=== PATIENT | male | born 1940 | race Hispanic/Latino ===

== ENCOUNTER 2017-09-02 12:21 | Inpatient (IN) | payer MEDICARE, OTHER ==
[~2017-09-02] VITALS: Ht 167.6 cm; Wt 101.7 kg
[~2017-09-02 12:21] MED LIST: ACET-2247 PO; CLON0.1T PO; CLOP75TA14 PO; CYCL5TAB PO; DOCU-116 PO; ENOX30DI4 SQ; FAMO20TA8 PO; GABA300C PO; GLIM1TAB2 PO; LACT10SO9 PO; LEVO50TA11 PO; MULT-950 PO; PROSTAT SF; SIMV40TA2 PO; VERE240SR PO
[2017-09-02 12:43] LABS: BASOPHILS % (AUTO) 0.9 % (0.0-5.0); EOSINOPHILS % (AUTO) 3.8 % (0.0-8.0); HEMATOCRIT 37.5 % (42-54); LYMPHOCYTES % (AUTO) 18.8 % (21.0-51.0); MEAN CORPUSCULAR HEMOGLOBIN 28.1 pg (27.0-33.0); MEAN CORPUSCULAR HGB CONC 32.8 g/dL (32.0-36.0); MEAN CORPUSCULAR VOLUME 85.5 fL (79-99); MONOCYTES % (AUTO) 7.1 % (3.0-13.0); NEUTROPHILS % (AUTO) 69.4 % (40.0-77.0); PLATELET COUNT (AUTO) 271 K/uL (130-400); RED BLOOD CELL COUNT(AUTO) 4.38 MIL/uL (4.50-6.20); RED CELL DISTRIBUTION WIDTH 17.5 % (11.0-15.5); WHITE BLOOD COUNT (AUTO) 7.6 K/uL (4.8-10.8)
[2017-09-02 12:52] LABS: CREATININE 1.2 mg/dL (0.5-1.5); POTASSIUM 3.8 mmol/L (3.5-5.1)
[2017-09-02 12:54] LABS: INR 0.95 (0.85-1.15); PARTIAL THROMBOPLASTIN TIME 30.3 SEC (26.3-35.5)
[2017-09-02 12:59] LABS: ALBUMIN 3.7 g/dL (3.5-5.0); BILIRUBIN,TOTAL 0.3 mg/dL (0.2-1.0); TOTAL PROTEIN, SERUM 7.5 g/dL (6.0-8.3)
[2017-09-02] MEDS ORDERED: ONDANSETRON HCL 4 MG/2 ML VIAL ONE ×3 (14:20→17:52)
[2017-09-02] MEDS ORDERED: MORPHINE SULFATE 4 MG/1ML SYG ONE (14:21)
[2017-09-02] MEDS ORDERED: VANCOMYCIN 1GM+NS 250ML 250 ML IV ONE (15:51)
[2017-09-02 18:54] VITALS: BP 168/73
[2017-09-02 19:40] VITALS: BP 159/72
[2017-09-02] MEDS ORDERED: OMEP20CA10 PO (20:54)
[2017-09-02] MEDS ORDERED: GABA-531 PO (20:54)
[2017-09-02] MEDS ORDERED: LORTAB PO (20:54)
[2017-09-02] MEDS ORDERED: METF500T6 PO (20:54)
[2017-09-02] MEDS ORDERED: VIT E PO (20:54)
[2017-09-02] MEDS ORDERED: TRAMADOL (20:54)
[2017-09-02] MEDS ORDERED: TRAMADOL PRN (21:00)
[2017-09-02] MEDS ORDERED: CLONIDINE HCL 0.1 MG TABLET PO PRN (21:00)
[2017-09-02] MEDS ORDERED: COMPOUND IV REFRIGERATED 1 EACH IVSOLN MISC PRN (21:30)
[2017-09-02] MEDS ORDERED: GLUCAGON 1MG KIT 1 MG ML IM PRN (21:30)
[2017-09-02] MEDS ORDERED: VANCOMYCIN PROTOCOL PER PHARMACY IV SCH (21:30)
[2017-09-02] MEDS ORDERED: TRAM1TAB PO (21:40)
[2017-09-02 23:36] VITALS: BP 154/85
[2017-09-02] MEDS: ZOSYN 3.375GM+NS 50ML 50 ML IV SCH (23:53)
[2017-09-02] MEDS: GABAPENTIN 300 MG CAPSULE PO SCH (23:54)
[2017-09-02] MEDS: METFORMIN HCL 500 MG TABLET PO SCH (23:54)
[2017-09-03] MEDS: MORPHINE SULFATE 4 MG/1ML SYG IVP PRN (01:35)
[2017-09-03] MEDS ORDERED: IBUP-2077 PO (01:46)
[2017-09-03] MEDS ORDERED: LISI-613 PO (01:46)
[2017-09-03 04:46] VITALS: BP 128/76
[2017-09-03] MEDS: INSULIN R PO SS1 SQ SCH ×4 (05:44→20:11)
[2017-09-03] MEDS: ZOSYN 3.375GM+NS 50ML 50 ML IV SCH ×3 (05:44→20:10)
[2017-09-03 08:27] LABS: CREATININE 1.1 mg/dL (0.5-1.5)
[2017-09-03 08:52] VITALS: BP 141/69
[2017-09-03] MEDS: VANCOMYCIN 1.25 GM in SODIUM CHLORIDE 0.9% 250 ML IV SCH (09:21)
[2017-09-03] MEDS: VITAMIN E 400 UNIT CAPSULE PO SCH (09:21)
[2017-09-03] MEDS: CLOPIDOGREL BISULFATE 75 MG TAB PO SCH (09:22)
[2017-09-03] MEDS: GABAPENTIN 300 MG CAPSULE PO SCH ×3 (09:22→20:11)
[2017-09-03] MEDS: LISINOPRIL 20 MG TABLET PO SCH (09:22)
[2017-09-03] MEDS: PANTOPRAZOLE SODIUM 40 MG TABLET.DR PO SCH (09:22)
[2017-09-03] MEDS: METFORMIN HCL 500 MG TABLET PO SCH ×2 (09:22→16:35)
[2017-09-03] MEDS: HYDROCODONE/ACETAMINOPHEN 10/325 MG TAB PO PRN ×2 (09:23→20:11)
[2017-09-03 11:28] VITALS: BP 150/67
[2017-09-03 16:13] VITALS: BP 156/90
[2017-09-03 20:08] VITALS: BP 142/83
[2017-09-03 23:03] VITALS: BP 132/62
[2017-09-04] MEDS: MORPHINE SULFATE 4 MG/1ML SYG IVP PRN (01:01)
[2017-09-04 03:54] VITALS: BP 130/71
[2017-09-04 05:55] LABS: BASOPHILS % (AUTO) 1.1 % (0.0-5.0); EOSINOPHILS % (AUTO) 5.4 % (0.0-8.0); HEMATOCRIT 32.7 % (42-54); LYMPHOCYTES % (AUTO) 29.7 % (21.0-51.0); MEAN CORPUSCULAR HEMOGLOBIN 28.2 pg (27.0-33.0); MEAN CORPUSCULAR HGB CONC 32.5 g/dL (32.0-36.0); MEAN CORPUSCULAR VOLUME 86.8 fL (79-99); MONOCYTES % (AUTO) 8.3 % (3.0-13.0); NEUTROPHILS % (AUTO) 55.5 % (40.0-77.0); PLATELET COUNT (AUTO) 239 K/uL (130-400); RED BLOOD CELL COUNT(AUTO) 3.77 MIL/uL (4.50-6.20); RED CELL DISTRIBUTION WIDTH 17.3 % (11.0-15.5); WHITE BLOOD COUNT (AUTO) 6.7 K/uL (4.8-10.8)
[2017-09-04] MEDS: INSULIN R PO SS1 SQ SCH ×4 (05:57→20:20)
[2017-09-04] MEDS: ZOSYN 3.375GM+NS 50ML 50 ML IV SCH ×3 (05:57→20:26)
[2017-09-04 06:03] LABS: POTASSIUM 3.8 mmol/L (3.5-5.1)
[2017-09-04 07:54] VITALS: BP 141/62
[2017-09-04] MEDS: PANTOPRAZOLE SODIUM 40 MG TABLET.DR PO SCH (09:42)
[2017-09-04] MEDS: CLOPIDOGREL BISULFATE 75 MG TAB PO SCH (09:42)
[2017-09-04] MEDS: VITAMIN E 400 UNIT CAPSULE PO SCH (09:42)
[2017-09-04] MEDS: METFORMIN HCL 500 MG TABLET PO SCH ×2 (09:42→16:44)
[2017-09-04] MEDS: LISINOPRIL 20 MG TABLET PO SCH (09:43)
[2017-09-04] MEDS: VANCOMYCIN 1.25 GM in SODIUM CHLORIDE 0.9% 250 ML IV SCH (09:52)
[2017-09-04] MEDS: ENOXAPARIN SODIUM 40 MG/0.4 ML SYRINGE SQ SCH (09:53)
[2017-09-04 11:16] VITALS: BP 143/70
[2017-09-04] MEDS: GABAPENTIN 300 MG CAPSULE PO SCH ×2 (13:48→20:26)
[2017-09-04] MEDS: HYDROCODONE/ACETAMINOPHEN 10/325 MG TAB PO PRN ×2 (13:54→22:05)
[2017-09-04 16:20] VITALS: BP 146/72
[2017-09-04 20:00] VITALS: BP 148/72
[2017-09-05] VITALS: BP 134/62
[2017-09-05] MEDS: MORPHINE SULFATE 4 MG/1ML SYG IVP PRN ×2 (01:41→23:37)
[2017-09-05] MEDS: ZOSYN 3.375GM+NS 50ML 50 ML IV SCH ×3 (03:59→20:41)
[2017-09-05 04:00] VITALS: BP 152/70
[2017-09-05 05:12] LABS: HEMATOCRIT 30.8 % (42-54); MEAN CORPUSCULAR HEMOGLOBIN 29.8 pg (27.0-33.0); MEAN CORPUSCULAR HGB CONC 34.4 g/dL (32.0-36.0); MEAN CORPUSCULAR VOLUME 86.6 fL (79-99); NUCLEATED RED BLOOD CELLS 0.1 % (0.0-0.19); PLATELET COUNT (AUTO) 236 K/uL (130-400); RED BLOOD CELL COUNT(AUTO) 3.56 MIL/uL (4.50-6.20); RED CELL DISTRIBUTION WIDTH 17.5 % (11.0-15.5); WHITE BLOOD COUNT (AUTO) 7.4 K/uL (4.8-10.8)
[2017-09-05] MEDS: INSULIN R PO SS1 SQ SCH ×4 (06:07→20:25)
[2017-09-05 08:00] VITALS: BP 155/63
[2017-09-05] MEDS: CLOPIDOGREL BISULFATE 75 MG TAB PO SCH (08:07)
[2017-09-05] MEDS: PANTOPRAZOLE SODIUM 40 MG TABLET.DR PO SCH (08:07)
[2017-09-05] MEDS: METFORMIN HCL 500 MG TABLET PO SCH ×2 (08:07→17:18)
[2017-09-05] MEDS: LISINOPRIL 20 MG TABLET PO SCH (08:07)
[2017-09-05] MEDS: GABAPENTIN 300 MG CAPSULE PO SCH ×3 (08:07→20:41)
[2017-09-05] MEDS: VITAMIN E 400 UNIT CAPSULE PO SCH (08:26)
[2017-09-05] MEDS: VANCOMYCIN 1.25 GM in SODIUM CHLORIDE 0.9% 250 ML IV SCH (08:27)
[2017-09-05] MEDS: ENOXAPARIN SODIUM 40 MG/0.4 ML SYRINGE SQ SCH (08:29)
[2017-09-05 11:22] VITALS: BP 138/88
[2017-09-05 16:00] VITALS: BP 148/90
[2017-09-05] MEDS: SODIUM CHLORIDE 0.9% 1000ML 1,000 ML IV SCH (16:05)
[2017-09-05] MEDS ORDERED: DiphenhydrAMINE HCL 50 MG/ML VIAL IVP PRN (16:15)
[2017-09-05 20:00] VITALS: BP 157/63
[2017-09-06] VITALS (7 sets, daily range): BP systolic 111–158; BP diastolic 46–75
[2017-09-06] MEDS: SODIUM CHLORIDE 0.9% 1000ML 1,000 ML IV SCH ×3 (02:05→21:29)
[2017-09-06 03:54] LABS: HEMATOCRIT 32.3 % (42-54); MEAN CORPUSCULAR HEMOGLOBIN 28.4 pg (27.0-33.0); NUCLEATED RED BLOOD CELLS 0.1 % (0.0-0.19); PLATELET COUNT (AUTO) 221 K/uL (130-400); RED BLOOD CELL COUNT(AUTO) 3.75 MIL/uL (4.50-6.20); RED CELL DISTRIBUTION WIDTH 17.4 % (11.0-15.5); WHITE BLOOD COUNT (AUTO) 7.6 K/uL (4.8-10.8)
[2017-09-06 04:01] LABS: CREATININE 1.1 mg/dL (0.5-1.5); POTASSIUM 4.3 mmol/L (3.5-5.1)
[2017-09-06] MEDS: ZOSYN 3.375GM+NS 50ML 50 ML IV SCH ×3 (04:44→20:18)
[2017-09-06] MEDS: INSULIN R PO SS1 SQ SCH ×4 (07:30→20:31)
[2017-09-06] MEDS: CLOPIDOGREL BISULFATE 75 MG TAB PO SCH (09:28)
[2017-09-06] MEDS: LISINOPRIL 20 MG TABLET PO SCH (09:29)
[2017-09-06] MEDS: PANTOPRAZOLE SODIUM 40 MG TABLET.DR PO SCH (09:29)
[2017-09-06] MEDS: VITAMIN E 400 UNIT CAPSULE PO SCH (09:29)
[2017-09-06] MEDS: GLIMEPIRIDE 2 MG TABLET PO SCH (09:29)
[2017-09-06] MEDS: GABAPENTIN 300 MG CAPSULE PO SCH ×3 (09:30→20:18)
[2017-09-06] MEDS: VANCOMYCIN 1.25 GM in SODIUM CHLORIDE 0.9% 250 ML IV SCH ×2 (09:31→22:02)
[2017-09-06] MEDS: ENOXAPARIN SODIUM 40 MG/0.4 ML SYRINGE SQ SCH (09:33)
[2017-09-06] MEDS: MORPHINE SULFATE 4 MG/1ML SYG IVP PRN (09:52)
[2017-09-06] MEDS: HYDROCODONE/ACETAMINOPHEN 10/325 MG TAB PO PRN (15:57)
[2017-09-07] VITALS (12 sets, daily range): BP systolic 103–200; BP diastolic 53–93
[2017-09-07 04:27] LABS: HEMATOCRIT 30.6 % (42-54); MEAN CORPUSCULAR HEMOGLOBIN 30.2 pg (27.0-33.0); MEAN CORPUSCULAR HGB CONC 35.2 g/dL (32.0-36.0); MEAN CORPUSCULAR VOLUME 85.7 fL (79-99); PLATELET COUNT (AUTO) 245 K/uL (130-400); RED BLOOD CELL COUNT(AUTO) 3.57 MIL/uL (4.50-6.20); RED CELL DISTRIBUTION WIDTH 17.9 % (11.0-15.5); WHITE BLOOD COUNT (AUTO) 6.7 K/uL (4.8-10.8)
[2017-09-07 04:38] LABS: INR 0.98 (0.85-1.15); PROTHROMBIN TIME 10.3 SEC (9.6-11.6)
[2017-09-07 04:43] LABS: CREATININE 0.9 mg/dL (0.5-1.5); POTASSIUM 3.6 mmol/L (3.5-5.1)
[2017-09-07] MEDS: MORPHINE SULFATE 4 MG/1ML SYG IVP PRN ×3 (05:35→18:28)
[2017-09-07] MEDS: ZOSYN 3.375GM+NS 50ML 50 ML IV SCH ×3 (05:35→20:14)
[2017-09-07] MEDS: LEVOTHYROXINE 50 MCG TABLET PO SCH (05:36)
[2017-09-07] MEDS: INSULIN R PO SS1 SQ SCH ×4 (05:36→20:19)
[2017-09-07] MEDS: GLIMEPIRIDE 2 MG TABLET PO SCH (08:00)
[2017-09-07] MEDS: CLOPIDOGREL BISULFATE 75 MG TAB PO SCH (08:43)
[2017-09-07] MEDS: PANTOPRAZOLE SODIUM 40 MG TABLET.DR PO SCH ×2 (08:43→18:32)
[2017-09-07] MEDS: LISINOPRIL 20 MG TABLET PO SCH (08:43)
[2017-09-07] MEDS: GABAPENTIN 300 MG CAPSULE PO SCH ×3 (08:43→20:14)
[2017-09-07] MEDS: VITAMIN E 400 UNIT CAPSULE PO SCH (08:44)
[2017-09-07] MEDS: VANCOMYCIN 1.25 GM in SODIUM CHLORIDE 0.9% 250 ML IV SCH ×2 (08:52→20:14)
[2017-09-07] MEDS: SODIUM CHLORIDE 0.9% 1000ML 1,000 ML IV SCH (08:53)
[2017-09-07] MEDS ORDERED: LIDOCAINE HCL 2% 20ML ONE (14:14)
[2017-09-07] MEDS ORDERED: ISOVUE-300 100 ML VIAL IV ONE ×2 (14:14→15:37)
[2017-09-07] MEDS ORDERED: NITROGLYCERIN 5 MG/ML 10 ML VIAL IV ONE (14:14)
[2017-09-07] MEDS ORDERED: HEPARIN SODIUM 5000UNIT/ML 1ML VIAL ONE (14:21)
[2017-09-07] MEDS ORDERED: MIDAZOLAM HCL 1 MG/ML 2ML VIAL ONE (14:40)
[2017-09-07] MEDS ORDERED: FENTANYL CITRATE PF 50 MCG/1 ML 2ML VIAL ONE (14:40)
[2017-09-07] MEDS ORDERED: LABETALOL HCL 5 MG/ML 20ML VIAL IV ONE (15:48)
[2017-09-07] MEDS ORDERED: TICAGRELOR 90 MG TABLET ONE (15:53)
[2017-09-07] MEDS ORDERED: ASPIRIN 325MG EC TAB 325 MG TABLET.DR PO ONE (15:53)
[2017-09-07] MEDS ORDERED: SODIUM CHLORIDE 0.9% 1000ML 1,000 ML IV SCH (16:05)
[2017-09-07] MEDS ORDERED: TICAGRELOR 90 MG TABLET PO SCH (23:55)
[2017-09-08] MEDS ORDERED: MAG HYDROX/AL HYDROX/SIMETH ES 30 ML SUSP UDCUP ONE (00:08)
[2017-09-08] MEDS: MORPHINE SULFATE 4 MG/1ML SYG IVP PRN ×2 (00:12→16:30)
[2017-09-08 04:20] VITALS: BP 166/66
[2017-09-08] MEDS: ZOSYN 3.375GM+NS 50ML 50 ML IV SCH ×3 (04:21→20:49)
[2017-09-08 04:31] LABS: HEMATOCRIT 32.4 % (42-54); MEAN CORPUSCULAR HEMOGLOBIN 28.5 pg (27.0-33.0); MEAN CORPUSCULAR HGB CONC 33.1 g/dL (32.0-36.0); MEAN CORPUSCULAR VOLUME 86.1 fL (79-99); PLATELET COUNT (AUTO) 246 K/uL (130-400); RED BLOOD CELL COUNT(AUTO) 3.77 MIL/uL (4.50-6.20); RED CELL DISTRIBUTION WIDTH 17.3 % (11.0-15.5); WHITE BLOOD COUNT (AUTO) 6.7 K/uL (4.8-10.8)
[2017-09-08 04:43] LABS: POTASSIUM 3.8 mmol/L (3.5-5.1)
[2017-09-08] MEDS: INSULIN R PO SS1 SQ SCH ×4 (07:30→20:50)
[2017-09-08 08:00] VITALS: BP 149/79
[2017-09-08] MEDS: LEVOTHYROXINE 50 MCG TABLET PO SCH (08:20)
[2017-09-08] MEDS: CLOPIDOGREL BISULFATE 75 MG TAB PO SCH ×2 (08:21→08:22)
[2017-09-08] MEDS: VITAMIN E 400 UNIT CAPSULE PO SCH (08:21)
[2017-09-08] MEDS: LISINOPRIL 20 MG TABLET PO SCH (08:21)
[2017-09-08] MEDS: GABAPENTIN 300 MG CAPSULE PO SCH ×3 (08:21→20:49)
[2017-09-08] MEDS: ASPIRIN 81MG TAB.CHEW PO SCH (08:21)
[2017-09-08] MEDS: GLIMEPIRIDE 2 MG TABLET PO SCH (08:22)
[2017-09-08] MEDS: PANTOPRAZOLE SODIUM 40 MG TABLET.DR PO SCH (08:22)
[2017-09-08] MEDS: VANCOMYCIN 1.25 GM in SODIUM CHLORIDE 0.9% 250 ML IV SCH ×2 (08:29→20:49)
[2017-09-08] MEDS: AMLODIPINE BESYLATE 5 MG TAB PO SCH (10:07)
[2017-09-08] MEDS: IBUPROFEN 800 MG TAB PO PRN (10:07)
[2017-09-08] MEDS: MAG HYDROX/AL HYDROX/SIMETH ES 30 ML SUSP UDCUP PO PRN (13:12)
[2017-09-08 16:00] VITALS: BP 139/63
[2017-09-08 19:45] VITALS: BP 133/64
[2017-09-08] MEDS: HYDROCODONE/ACETAMINOPHEN 10/325 MG TAB PO PRN (23:11)
[2017-09-08 23:40] VITALS: BP 142/74
[2017-09-09] MEDS: MORPHINE SULFATE 4 MG/1ML SYG IVP PRN ×3 (01:24→15:23)
[2017-09-09 03:49] VITALS: BP 135/80
[2017-09-09] MEDS: ZOSYN 3.375GM+NS 50ML 50 ML IV SCH ×3 (06:39→22:03)
[2017-09-09] MEDS: INSULIN R PO SS1 SQ SCH ×4 (06:54→21:00)
[2017-09-09 08:00] VITALS: BP 142/63
[2017-09-09] MEDS: VANCOMYCIN 1GM+NS 250ML IV SCH ×2 (11:23→21:13)
[2017-09-09] MEDS: VITAMIN E 400 UNIT CAPSULE PO SCH (11:24)
[2017-09-09] MEDS: PANTOPRAZOLE SODIUM 40 MG TABLET.DR PO SCH (11:25)
[2017-09-09] MEDS: GABAPENTIN 300 MG CAPSULE PO SCH ×3 (11:25→21:12)
[2017-09-09] MEDS: GLIMEPIRIDE 2 MG TABLET PO SCH (11:26)
[2017-09-09] MEDS: ASPIRIN 81MG TAB.CHEW PO SCH (11:26)
[2017-09-09] MEDS: LISINOPRIL 20 MG TABLET PO SCH (11:26)
[2017-09-09] MEDS: CLOPIDOGREL BISULFATE 75 MG TAB PO SCH (11:26)
[2017-09-09] MEDS: AMLODIPINE BESYLATE 5 MG TAB PO SCH (11:26)
[2017-09-09] MEDS: LEVOTHYROXINE 50 MCG TABLET PO SCH (11:27)
[2017-09-09 12:00] VITALS: BP 134/69
[2017-09-09 16:00] VITALS: BP 144/68
[2017-09-09] MEDS ORDERED: CEFUROXIME SODIUM 1.5 GM VIAL IVP SCH (17:15)
[2017-09-09 17:21] LABS: PARTIAL THROMBOPLASTIN TIME 32.2 SEC (26.3-35.5)
[2017-09-09] MEDS ORDERED: METFORMIN HCL 500 MG TABLET PO SCH (17:26)
[2017-09-09 17:31] LABS: INR 0.97 (0.85-1.15); PROTHROMBIN TIME 10.2 SEC (9.6-11.6)
[2017-09-09] MEDS: METFORMIN HCL 500 MG TABLET PO SCH (17:42)
[2017-09-09] MEDS: HYDROCODONE/ACETAMINOPHEN 10/325 MG TAB PO PRN (17:46)
[2017-09-09 19:00] VITALS: BP 129/49
[2017-09-10] VITALS (16 sets, daily range): BP systolic 102–164; BP diastolic 38–98
[2017-09-10 04:21] LABS: HEMATOCRIT 31.4 % (42-54); MEAN CORPUSCULAR HEMOGLOBIN 28.2 pg (27.0-33.0); MEAN CORPUSCULAR HGB CONC 32.5 g/dL (32.0-36.0); MEAN CORPUSCULAR VOLUME 86.9 fL (79-99); NUCLEATED RED BLOOD CELLS 0.1 % (0.0-0.19); PLATELET COUNT (AUTO) 218 K/uL (130-400); RED BLOOD CELL COUNT(AUTO) 3.61 MIL/uL (4.50-6.20); RED CELL DISTRIBUTION WIDTH 17.5 % (11.0-15.5); WHITE BLOOD COUNT (AUTO) 7.7 K/uL (4.8-10.8)
[2017-09-10 04:43] LABS: CREATININE 0.9 mg/dL (0.5-1.5); POTASSIUM 3.6 mmol/L (3.5-5.1)
[2017-09-10] MEDS: ZOSYN 3.375GM+NS 50ML 50 ML IV SCH ×3 (05:24→20:14)
[2017-09-10] MEDS: INSULIN R PO SS1 SQ SCH ×4 (06:48→20:26)
[2017-09-10] MEDS ORDERED: CEFUROXIME 1.5GM+NS 100ML 100 ML IV SCH ×2 (07:00→20:45)
[2017-09-10] MEDS: LEVOTHYROXINE 50 MCG TABLET PO SCH (07:30)
[2017-09-10] MEDS ORDERED: HEPARIN SODIUM 1000UNIT/ML 10ML VIAL ONE (07:39)
[2017-09-10] MEDS ORDERED: BACITRACIN 50,000 UNIT VIAL ONE (07:40)
[2017-09-10] MEDS ORDERED: THROMBIN-JMI 5000 UNIT/VIAL TP ONE (07:41)
[2017-09-10] MEDS ORDERED: MIDAZOLAM HCL 1 MG/ML 2ML VIAL ONE (07:48)
[2017-09-10] MEDS ORDERED: FENTANYL CITRATE PF 50 MCG/1 ML 2ML VIAL ONE ×2 (07:48→13:17)
[2017-09-10] MEDS ORDERED: PROPOFOL 10 MG/ML 20ML VIAL IV ONE (07:48)
[2017-09-10] MEDS: GLIMEPIRIDE 2 MG TABLET PO SCH (08:00)
[2017-09-10] MEDS: METFORMIN HCL 500 MG TABLET PO SCH ×2 (08:00→16:37)
[2017-09-10] MEDS: VITAMIN E 400 UNIT CAPSULE PO SCH (09:00)
[2017-09-10] MEDS: PANTOPRAZOLE SODIUM 40 MG TABLET.DR PO SCH (09:00)
[2017-09-10] MEDS: ASPIRIN 81MG TAB.CHEW PO SCH (09:00)
[2017-09-10] MEDS: GABAPENTIN 300 MG CAPSULE PO SCH ×3 (09:00→20:14)
[2017-09-10] MEDS: CLOPIDOGREL BISULFATE 75 MG TAB PO SCH (09:00)
[2017-09-10] MEDS ORDERED: BACITRACIN 28.4 GM OINT TP ONE (10:44)
[2017-09-10] MEDS ORDERED: ROCURONIUM BROMIDE 10MG/1ML 5ML VL ONE ×2 (11:46→13:35)
[2017-09-10] MEDS ORDERED: OCTYL 2-CYANOACRYLATE 1 EACH TP ONE (12:35)
[2017-09-10] MEDS ORDERED: CEFUROXIME SODIUM 1.5 GM VIAL ONE (12:42)
[2017-09-10] MEDS ORDERED: MORPHINE SULFATE 2 MG/ML 1ML SYG IM PRN (12:45)
[2017-09-10] MEDS ORDERED: EPHEDRINE SULFATE 50 MG/ML AMPULE ONE (12:54)
[2017-09-10] MEDS ORDERED: GLYCOPYRROLATE 0.2 MG/ML 5 ML VIAL ONE (13:35)
[2017-09-10] MEDS ORDERED: ONDANSETRON HCL 4 MG/2 ML VIAL ONE (13:35)
[2017-09-10] MEDS ORDERED: NEOSTIGMINE 5MG/5ML SYR IV ONE (13:35)
[2017-09-10] MEDS ORDERED: LIDOCAINE PF 2% 5ML ABBOJECT ONE (13:35)
[2017-09-10] MEDS ORDERED: MORPHINE SULFATE 4 MG/1ML SYG ONE (14:18)
[2017-09-10] MEDS ORDERED: FUROSEMIDE 10 MG/ML 2ML VIAL ONE (14:36)
[2017-09-10] MEDS ORDERED: FUROSEMIDE 10 MG/ML 2ML VIAL IV SCH (14:45)
[2017-09-10] MEDS ORDERED: IPRATROPIUM/ALBUTEROL SULFATE 3 ML SOLUTION IH SCH (14:45)
[2017-09-10] MEDS ORDERED: VANCOMYCIN PROTOCOL PER PHARMACY IV SCH (15:00)
[2017-09-10] MEDS: FUROSEMIDE 10 MG/ML 2ML VIAL IV SCH ×2 (15:00→22:13)
[2017-09-10 15:58] LABS: HEMATOCRIT 32.2 % (42-54); MEAN CORPUSCULAR HEMOGLOBIN 27.8 pg (27.0-33.0); MEAN CORPUSCULAR HGB CONC 31.5 g/dL (32.0-36.0); MEAN CORPUSCULAR VOLUME 88.3 fL (79-99); PLATELET COUNT (AUTO) 231 K/uL (130-400); RED BLOOD CELL COUNT(AUTO) 3.65 MIL/uL (4.50-6.20); RED CELL DISTRIBUTION WIDTH 18.4 % (11.0-15.5); WHITE BLOOD COUNT (AUTO) 13.3 K/uL (4.8-10.8)
[2017-09-10] MEDS ORDERED: VANCOMYCIN 1.5 GM in SODIUM CHLORIDE 0.9% 250 ML IV SCH (16:00)
[2017-09-10 16:02] LABS: ABG BASE EXCESS -7.7 mmol/L (-2.0-3.0); ABG HCO3 16.5 mmol/L (21.0-28.0); ABG OXYGEN SATURATION 99.1 % (95.0-99.0); ABG PCO2 30 mmHg (35-48)
[2017-09-10 16:35] LABS: CREATININE 1.1 mg/dL (0.5-1.5); POTASSIUM 3.6 mmol/L (3.5-5.1)
[2017-09-10 16:38] LABS: MAGNESIUM 1.9 mg/dL (1.80-2.40)
[2017-09-10] MEDS: LEVOFLOXACIN 750 MG/D5W 150 ML 150 ML IV SCH (16:45)
[2017-09-10] MEDS ORDERED: LIDOCAINE HCL-MPF 1% 2ML VIAL IVP PRN (17:30)
[2017-09-10] MEDS ORDERED: POTASSIUM CHLORIDE 10% ELIXIR 20 MEQ/15 ML UDCUP PO PRN (17:30)
[2017-09-10] MEDS: IPRATROPIUM/ALBUTEROL SULFATE 3 ML SOLUTION IH SCH (18:00)
[2017-09-10] MEDS: MAGNESIUM 2GM PREMIX 50ML 50 ML IV PRN (18:14)
[2017-09-10] MEDS: POTASSIUM CHLORIDE 20MEQ/100ML 100 ML IV PRN (18:14)
[2017-09-10] MEDS: INSULIN HUMULIN R 100 UNIT/ML 3ML SQ SCH ×2 (18:25→23:54)
[2017-09-10] MEDS: HYDROCODONE/ACETAMINOPHEN 10/325 MG TAB PO PRN ×2 (20:14)
[2017-09-10] MEDS: FLUCONAZOLE 100 MG TAB PO SCH (20:17)
[2017-09-10] MEDS ORDERED: CEFUROXIME SODIUM 1.5 GM VIAL IVP SCH (21:00)
[2017-09-11] VITALS (18 sets, daily range): BP systolic 101–156; BP diastolic 44–85
[2017-09-11] MEDS: TRAMADOL HCL 50 MG TABLET PO PRN ×2 (00:08→18:40)
[2017-09-11] MEDS: IPRATROPIUM/ALBUTEROL SULFATE 3 ML SOLUTION IH SCH ×5 (00:22→23:31)
[2017-09-11] MEDS: IBUPROFEN 800 MG TAB PO PRN (01:58)
[2017-09-11] MEDS ORDERED: MORPHINE SULFATE 4 MG/1ML SYG ONE (02:51)
[2017-09-11 04:29] LABS: BASOPHILS % (AUTO) 0.2 % (0.0-5.0); EOSINOPHILS % (AUTO) 0.1 % (0.0-8.0); HEMATOCRIT 26.8 % (42-54); LYMPHOCYTES % (AUTO) 8.7 % (21.0-51.0); MEAN CORPUSCULAR HEMOGLOBIN 29.2 pg (27.0-33.0); MEAN CORPUSCULAR HGB CONC 33.8 g/dL (32.0-36.0); MEAN CORPUSCULAR VOLUME 86.4 fL (79-99); MONOCYTES % (AUTO) 10.6 % (3.0-13.0); NEUTROPHILS % (AUTO) 80.4 % (40.0-77.0); PLATELET COUNT (AUTO) 221 K/uL (130-400); RED CELL DISTRIBUTION WIDTH 17.5 % (11.0-15.5); WHITE BLOOD COUNT (AUTO) 9.6 K/uL (4.8-10.8)
[2017-09-11] MEDS: ZOSYN 3.375GM+NS 50ML 50 ML IV SCH ×3 (04:39→20:23)
[2017-09-11 04:50] LABS: ALBUMIN 2.7 g/dL (3.5-5.0); BILIRUBIN,TOTAL 0.4 mg/dL (0.2-1.0); CREATININE 1.1 mg/dL (0.5-1.5); MAGNESIUM 2.3 mg/dL (1.80-2.40); PHOSPHORUS 3.2 mg/dL (2.5-4.9); POTASSIUM 3.6 mmol/L (3.5-5.1); TOTAL PROTEIN, SERUM 6.3 g/dL (6.0-8.3)
[2017-09-11] MEDS: INSULIN HUMULIN R 100 UNIT/ML 3ML SQ SCH ×4 (05:48→23:10)
[2017-09-11] MEDS: FUROSEMIDE 10 MG/ML 2ML VIAL IV SCH ×3 (06:00→22:22)
[2017-09-11] MEDS: LEVOTHYROXINE 50 MCG TABLET PO SCH (06:01)
[2017-09-11] MEDS: INSULIN R PO SS1 SQ SCH ×4 (06:02→20:50)
[2017-09-11] MEDS: HYDROCODONE/ACETAMINOPHEN 10/325 MG TAB PO PRN ×3 (06:07→22:35)
[2017-09-11] MEDS: CLOPIDOGREL BISULFATE 75 MG TAB PO SCH (08:45)
[2017-09-11] MEDS: AMLODIPINE BESYLATE 5 MG TAB PO SCH ×2 (08:45→09:00)
[2017-09-11] MEDS: FLUCONAZOLE 100 MG TAB PO SCH (08:45)
[2017-09-11] MEDS: LISINOPRIL 20 MG TABLET PO SCH (08:46)
[2017-09-11] MEDS: GLIMEPIRIDE 2 MG TABLET PO SCH (08:46)
[2017-09-11] MEDS: PANTOPRAZOLE SODIUM 40 MG TABLET.DR PO SCH (08:46)
[2017-09-11] MEDS: VITAMIN E 400 UNIT CAPSULE PO SCH (08:46)
[2017-09-11] MEDS: POTASSIUM CHLORIDE 20 MEQ ERTAB PO PRN ×2 (08:47→20:39)
[2017-09-11] MEDS: VANCOMYCIN 1GM+NS 250ML 250 ML IV SCH ×2 (08:47→20:22)
[2017-09-11] MEDS ORDERED: METFORMIN HCL 500 MG TABLET ONE (08:48)
[2017-09-11] MEDS: METFORMIN HCL 500 MG TABLET PO SCH ×2 (08:49→16:44)
[2017-09-11] MEDS: GABAPENTIN 300 MG CAPSULE PO SCH ×3 (09:00→20:23)
[2017-09-11] MEDS: ASPIRIN 81MG TAB.CHEW PO SCH (09:00)
[2017-09-11] MEDS: MAG HYDROX/AL HYDROX/SIMETH ES 30 ML SUSP UDCUP PO PRN (09:53)
[2017-09-11] MEDS ORDERED: CALCIUM GLUCONATE 1 GM in SODIUM CHLORIDE 0.9% 50 ML IV SCH (14:30)
[2017-09-11] MEDS: LEVOFLOXACIN 750 MG/D5W 150 ML 150 ML IV SCH (14:43)
[2017-09-12 03:13] VITALS: BP 112/66
[2017-09-12 05:00] LABS: HEMATOCRIT 27.1 % (42-54); MEAN CORPUSCULAR HEMOGLOBIN 28.1 pg (27.0-33.0); MEAN CORPUSCULAR HGB CONC 32.8 g/dL (32.0-36.0); MEAN CORPUSCULAR VOLUME 85.6 fL (79-99); PLATELET COUNT (AUTO) 202 K/uL (130-400); RED BLOOD CELL COUNT(AUTO) 3.17 MIL/uL (4.50-6.20); RED CELL DISTRIBUTION WIDTH 17.6 % (11.0-15.5); WHITE BLOOD COUNT (AUTO) 9.2 K/uL (4.8-10.8)
[2017-09-12 05:09] LABS: CREATININE 1.1 mg/dL (0.5-1.5); MAGNESIUM 2.1 mg/dL (1.80-2.40); POTASSIUM 3.7 mmol/L (3.5-5.1)
[2017-09-12] MEDS: ZOSYN 3.375GM+NS 50ML 50 ML IV SCH ×3 (05:30→21:07)
[2017-09-12] MEDS: TRAMADOL HCL 50 MG TABLET PO PRN (05:44)
[2017-09-12] MEDS: IPRATROPIUM/ALBUTEROL SULFATE 3 ML SOLUTION IH SCH ×4 (05:46→23:43)
[2017-09-12] MEDS: INSULIN HUMULIN R 100 UNIT/ML 3ML SQ SCH ×3 (06:00→18:00)
[2017-09-12] MEDS: LEVOTHYROXINE 50 MCG TABLET PO SCH (06:32)
[2017-09-12] MEDS: FUROSEMIDE 10 MG/ML 2ML VIAL IV SCH ×2 (06:32→15:12)
[2017-09-12] MEDS: INSULIN R PO SS1 SQ SCH ×4 (06:36→21:00)
[2017-09-12 07:49] VITALS: BP 137/60
[2017-09-12] MEDS: GLIMEPIRIDE 2 MG TABLET PO SCH (08:00)
[2017-09-12] MEDS: METFORMIN HCL 500 MG TABLET PO SCH ×2 (08:00→16:56)
[2017-09-12] MEDS: CLOPIDOGREL BISULFATE 75 MG TAB PO SCH (10:47)
[2017-09-12] MEDS: FLUCONAZOLE 100 MG TAB PO SCH (10:47)
[2017-09-12] MEDS: PANTOPRAZOLE SODIUM 40 MG TABLET.DR PO SCH (10:47)
[2017-09-12] MEDS: ENOXAPARIN SODIUM 40 MG/0.4 ML SYRINGE SQ SCH (10:47)
[2017-09-12] MEDS: ASPIRIN 81MG TAB.CHEW PO SCH (10:47)
[2017-09-12] MEDS: AMLODIPINE BESYLATE 5 MG TAB PO SCH (10:48)
[2017-09-12] MEDS: GABAPENTIN 300 MG CAPSULE PO SCH ×3 (10:48→21:07)
[2017-09-12] MEDS: VITAMIN E 400 UNIT CAPSULE PO SCH (10:49)
[2017-09-12] MEDS: LISINOPRIL 20 MG TABLET PO SCH (10:49)
[2017-09-12 11:22] VITALS: BP 101/58
[2017-09-12] MEDS: LEVOFLOXACIN 750 MG/D5W 150 ML 150 ML IV SCH (11:50)
[2017-09-12 16:50] VITALS: BP 143/70
[2017-09-12] MEDS: HYDROCODONE/ACETAMINOPHEN 10/325 MG TAB PO PRN (17:00)
[2017-09-12 19:51] VITALS: BP 138/62
[2017-09-12 23:28] VITALS: BP 151/49
[2017-09-13] MEDS: FUROSEMIDE 10 MG/ML 2ML VIAL IV SCH ×4 (00:06→23:25)
[2017-09-13] MEDS: HYDROCODONE/ACETAMINOPHEN 10/325 MG TAB PO PRN ×2 (00:35→09:41)
[2017-09-13 04:00] VITALS: BP 95/59
[2017-09-13 04:08] LABS: HEMATOCRIT 24.1 % (42-54)
[2017-09-13 04:11] LABS: CREATININE 1.1 mg/dL (0.5-1.5); POTASSIUM 3.8 mmol/L (3.5-5.1)
[2017-09-13] MEDS: ZOSYN 3.375GM+NS 50ML 50 ML IV SCH ×3 (05:37→21:00)
[2017-09-13] MEDS: POTASSIUM CHLORIDE 20 MEQ ERTAB PO PRN (05:39)
[2017-09-13] MEDS: TRAMADOL HCL 50 MG TABLET PO PRN ×2 (05:49→13:00)
[2017-09-13] MEDS: INSULIN HUMULIN R 100 UNIT/ML 3ML SQ SCH ×4 (06:00→17:23)
[2017-09-13] MEDS: IPRATROPIUM/ALBUTEROL SULFATE 3 ML SOLUTION IH SCH ×4 (06:09→23:50)
[2017-09-13] MEDS: LEVOTHYROXINE 50 MCG TABLET PO SCH (06:47)
[2017-09-13] MEDS: INSULIN R PO SS1 SQ SCH ×4 (06:53→21:00)
[2017-09-13 07:00] VITALS: BP 122/54
[2017-09-13] MEDS: METFORMIN HCL 500 MG TABLET PO SCH ×2 (09:39→17:43)
[2017-09-13] MEDS: VITAMIN E 400 UNIT CAPSULE PO SCH (09:39)
[2017-09-13] MEDS: ASPIRIN 81MG TAB.CHEW PO SCH (09:40)
[2017-09-13] MEDS: PANTOPRAZOLE SODIUM 40 MG TABLET.DR PO SCH (09:40)
[2017-09-13] MEDS: CLOPIDOGREL BISULFATE 75 MG TAB PO SCH (09:40)
[2017-09-13] MEDS: LISINOPRIL 20 MG TABLET PO SCH (09:40)
[2017-09-13] MEDS: GABAPENTIN 300 MG CAPSULE PO SCH ×3 (09:40→21:00)
[2017-09-13] MEDS: GLIMEPIRIDE 2 MG TABLET PO SCH (09:40)
[2017-09-13] MEDS: FLUCONAZOLE 100 MG TAB PO SCH (09:40)
[2017-09-13] MEDS: AMLODIPINE BESYLATE 5 MG TAB PO SCH (09:41)
[2017-09-13] MEDS: ENOXAPARIN SODIUM 40 MG/0.4 ML SYRINGE SQ SCH (09:48)
[2017-09-13 11:00] VITALS: BP 114/78
[2017-09-13] MEDS: LEVOFLOXACIN 750 MG/D5W 150 ML 150 ML IV SCH (11:48)
[2017-09-13 12:01] LABS: INR 1.01 (0.85-1.15); PROTHROMBIN TIME 10.6 SEC (9.6-11.6)
[2017-09-13] MEDS: ONDANSETRON HCL MDV 20ML 2 MG/ML VIAL IVP PRN (13:43)
[2017-09-13 16:00] VITALS: BP 98/53
[2017-09-13 19:55] VITALS: BP 117/78
[2017-09-13 23:23] VITALS: BP 102/63
[2017-09-14] MEDS: TRAMADOL HCL 50 MG TABLET PO PRN ×2 (01:30→15:34)
[2017-09-14 03:32] LABS: HEMATOCRIT 24.9 % (42-54)
[2017-09-14 03:44] LABS: CREATININE 1.3 mg/dL (0.5-1.5); POTASSIUM 3.8 mmol/L (3.5-5.1)
[2017-09-14 03:48] VITALS: BP 115/59
[2017-09-14] MEDS: ZOSYN 3.375GM+NS 50ML 50 ML IV SCH ×3 (04:55→20:20)
[2017-09-14] MEDS: POTASSIUM CHLORIDE 20 MEQ ERTAB PO PRN ×2 (05:02→06:32)
[2017-09-14] MEDS: DEXTROSE 50%-WATER 50 ML DISP.SYRIN IV PRN (05:23)
[2017-09-14] MEDS: INSULIN HUMULIN R 100 UNIT/ML 3ML SQ SCH ×2 (06:00)
[2017-09-14] MEDS: IPRATROPIUM/ALBUTEROL SULFATE 3 ML SOLUTION IH SCH ×3 (06:21→18:04)
[2017-09-14] MEDS: LEVOTHYROXINE 50 MCG TABLET PO SCH (06:31)
[2017-09-14] MEDS: FUROSEMIDE 10 MG/ML 2ML VIAL IV SCH ×3 (06:31→22:35)
[2017-09-14 07:25] VITALS: BP 85/54
[2017-09-14] MEDS: INSULIN R PO SS1 SQ SCH ×4 (07:30→20:17)
[2017-09-14] MEDS: LISINOPRIL 20 MG TABLET PO SCH (07:53)
[2017-09-14] MEDS: AMLODIPINE BESYLATE 5 MG TAB PO SCH (07:53)
[2017-09-14] MEDS: VITAMIN E 400 UNIT CAPSULE PO SCH (07:53)
[2017-09-14] MEDS: FLUCONAZOLE 100 MG TAB PO SCH (07:54)
[2017-09-14] MEDS: CLOPIDOGREL BISULFATE 75 MG TAB PO SCH (07:54)
[2017-09-14] MEDS: PANTOPRAZOLE SODIUM 40 MG TABLET.DR PO SCH (07:54)
[2017-09-14] MEDS: GLIMEPIRIDE 2 MG TABLET PO SCH (07:54)
[2017-09-14] MEDS: GABAPENTIN 300 MG CAPSULE PO SCH ×3 (07:54→20:20)
[2017-09-14] MEDS: METFORMIN HCL 500 MG TABLET PO SCH ×2 (07:54→16:24)
[2017-09-14] MEDS: LEVOFLOXACIN 750 MG/D5W 150 ML 150 ML IV SCH (07:54)
[2017-09-14] MEDS: ASPIRIN 81MG TAB.CHEW PO SCH (07:54)
[2017-09-14] MEDS: ENOXAPARIN SODIUM 40 MG/0.4 ML SYRINGE SQ SCH (07:55)
[2017-09-14 13:42] VITALS: BP 103/53
[2017-09-14] MEDS: MAGNESIUM HYDROXIDE 30 ML/UDCUP PO PRN ×2 (15:23→22:38)
[2017-09-14 16:00] VITALS: BP 99/63
[2017-09-14] MEDS: ONDANSETRON HCL MDV 20ML 2 MG/ML VIAL IVP PRN (16:00)
[2017-09-14 19:47] VITALS: BP 100/52
[2017-09-14] MEDS: HYDROCODONE/ACETAMINOPHEN 10/325 MG TAB PO PRN (23:15)
[2017-09-14 23:40] VITALS: BP 111/56
[2017-09-15] MEDS: TRAMADOL HCL 50 MG TABLET PO PRN ×2 (02:47→23:34)
[2017-09-15 04:04] VITALS: BP 109/46
[2017-09-15] MEDS: ZOSYN 3.375GM+NS 50ML 50 ML IV SCH (04:32)
[2017-09-15] MEDS: INSULIN R PO SS1 SQ SCH ×4 (05:31→21:00)
[2017-09-15] MEDS: LEVOTHYROXINE 50 MCG TABLET PO SCH (05:47)
[2017-09-15] MEDS: FUROSEMIDE 10 MG/ML 2ML VIAL IV SCH ×3 (06:21→23:24)
[2017-09-15] MEDS: IPRATROPIUM/ALBUTEROL SULFATE 3 ML SOLUTION IH SCH ×5 (06:37→23:40)
[2017-09-15] MEDS: METFORMIN HCL 500 MG TABLET PO SCH ×2 (07:17→16:08)
[2017-09-15] MEDS: GLIMEPIRIDE 2 MG TABLET PO SCH (07:17)
[2017-09-15 07:25] VITALS: BP 115/60
[2017-09-15] MEDS: AMLODIPINE BESYLATE 5 MG TAB PO SCH (07:28)
[2017-09-15] MEDS: FLUCONAZOLE 100 MG TAB PO SCH (07:28)
[2017-09-15] MEDS: LISINOPRIL 20 MG TABLET PO SCH (07:28)
[2017-09-15] MEDS: GABAPENTIN 300 MG CAPSULE PO SCH ×3 (07:28→20:27)
[2017-09-15] MEDS: PANTOPRAZOLE SODIUM 40 MG TABLET.DR PO SCH (07:29)
[2017-09-15] MEDS: VITAMIN E 400 UNIT CAPSULE PO SCH (07:29)
[2017-09-15] MEDS: ASPIRIN 81MG TAB.CHEW PO SCH (07:29)
[2017-09-15] MEDS: LEVOFLOXACIN 750 MG/D5W 150 ML 150 ML IV SCH (07:29)
[2017-09-15] MEDS: CLOPIDOGREL BISULFATE 75 MG TAB PO SCH (07:29)
[2017-09-15] MEDS: ENOXAPARIN SODIUM 40 MG/0.4 ML SYRINGE SQ SCH (07:30)
[2017-09-15 11:15] VITALS: BP 95/38
[2017-09-15] MEDS: ONDANSETRON HCL MDV 20ML 2 MG/ML VIAL IVP PRN ×2 (11:56→20:26)
[2017-09-15] MEDS: HYDROCODONE/ACETAMINOPHEN 10/325 MG TAB PO PRN ×2 (13:05→21:59)
[2017-09-15 16:00] VITALS: BP 106/56
[2017-09-15 19:30] VITALS: BP 99/74
[2017-09-15] MEDS: MAG HYDROX/AL HYDROX/SIMETH ES 30 ML SUSP UDCUP PO PRN (22:38)
[2017-09-15 23:19] VITALS: BP 102/85
[2017-09-16 03:58] VITALS: BP 132/64
[2017-09-16] MEDS: TRAMADOL HCL 50 MG TABLET PO PRN (06:01)
[2017-09-16] MEDS: INSULIN R PO SS1 SQ SCH ×2 (06:09→11:30)
[2017-09-16] MEDS: LEVOTHYROXINE 50 MCG TABLET PO SCH (06:30)
[2017-09-16] MEDS: IPRATROPIUM/ALBUTEROL SULFATE 3 ML SOLUTION IH SCH ×4 (06:30→23:59)
[2017-09-16] MEDS: FUROSEMIDE 10 MG/ML 2ML VIAL IV SCH ×3 (06:30→23:45)
[2017-09-16 08:00] VITALS: BP 86/52
[2017-09-16 08:09] VITALS: BP 122/80
[2017-09-16] MEDS: LISINOPRIL 2.5 MG TABLET PO SCH (08:23)
[2017-09-16] MEDS: METFORMIN HCL 500 MG TABLET PO SCH (08:23)
[2017-09-16] MEDS: GABAPENTIN 300 MG CAPSULE PO SCH ×3 (08:23→21:00)
[2017-09-16] MEDS: PANTOPRAZOLE SODIUM 40 MG TABLET.DR PO SCH (08:23)
[2017-09-16] MEDS: CLOPIDOGREL BISULFATE 75 MG TAB PO SCH (08:23)
[2017-09-16] MEDS: ASPIRIN 81MG TAB.CHEW PO SCH (08:23)
[2017-09-16] MEDS: VITAMIN E 400 UNIT CAPSULE PO SCH (08:23)
[2017-09-16] MEDS: FLUCONAZOLE 100 MG TAB PO SCH (08:23)
[2017-09-16] MEDS: HYDROCODONE/ACETAMINOPHEN 10/325 MG TAB PO PRN (08:24)
[2017-09-16] MEDS: ENOXAPARIN SODIUM 40 MG/0.4 ML SYRINGE SQ SCH (08:31)
[2017-09-16] MEDS: ONDANSETRON HCL MDV 20ML 2 MG/ML VIAL IVP PRN (09:15)
[2017-09-16 12:09] VITALS: BP 108/62
[2017-09-16] MEDS: LACTULOSE 20 GM/30 ML UDCUP PO PRN (13:59)
[2017-09-16] MEDS ORDERED: PROMETHAZINE HCL 25 MG/ML 1ML AMPULE IM SCH (15:00)
[2017-09-16 16:00] VITALS: BP 131/71
[2017-09-16] MEDS: INSULIN HUMULIN R 100 UNIT/ML 3ML SQ SCH ×2 (16:30→20:37)
[2017-09-16 19:15] VITALS: BP 119/73
[2017-09-16] MEDS: DEXTROSE 50%-WATER 50 ML DISP.SYRIN IV PRN (20:37)
[2017-09-17] VITALS (7 sets, daily range): BP systolic 98–151; BP diastolic 52–92
[2017-09-17] MEDS: HYDROCODONE/ACETAMINOPHEN 10/325 MG TAB PO PRN (02:11)
[2017-09-17 04:38] LABS: HEMATOCRIT 23.7 % (42-54); MEAN CORPUSCULAR HEMOGLOBIN 28.7 pg (27.0-33.0); MEAN CORPUSCULAR HGB CONC 34.5 g/dL (32.0-36.0); MEAN CORPUSCULAR VOLUME 83.1 fL (79-99); NUCLEATED RED BLOOD CELLS 0.4 % (0.0-0.19); PLATELET COUNT (AUTO) 263 K/uL (130-400); RED BLOOD CELL COUNT(AUTO) 2.85 MIL/uL (4.50-6.20); RED CELL DISTRIBUTION WIDTH 17.4 % (11.0-15.5); WHITE BLOOD COUNT (AUTO) 10.3 K/uL (4.8-10.8)
[2017-09-17 04:52] LABS: CREATININE 1.5 mg/dL (0.5-1.5); MAGNESIUM 2.4 mg/dL (1.80-2.40); POTASSIUM 4.4 mmol/L (3.5-5.1)
[2017-09-17] MEDS: LEVOTHYROXINE 50 MCG TABLET PO SCH (06:09)
[2017-09-17] MEDS: DEXTROSE 50%-WATER 50 ML DISP.SYRIN IV PRN (06:09)
[2017-09-17] MEDS: IPRATROPIUM/ALBUTEROL SULFATE 3 ML SOLUTION IH SCH ×3 (06:19→18:08)
[2017-09-17] MEDS: INSULIN HUMULIN R 100 UNIT/ML 3ML SQ SCH (07:30)
[2017-09-17] MEDS: FUROSEMIDE 10 MG/ML 2ML VIAL IV SCH (07:46)
[2017-09-17] MEDS: LISINOPRIL 2.5 MG TABLET PO SCH (09:56)
[2017-09-17] MEDS: VITAMIN E 400 UNIT CAPSULE PO SCH (09:57)
[2017-09-17] MEDS: ASPIRIN 81MG TAB.CHEW PO SCH (09:57)
[2017-09-17] MEDS: FLUCONAZOLE 100 MG TAB PO SCH (09:57)
[2017-09-17] MEDS: PANTOPRAZOLE SODIUM 40 MG TABLET.DR PO SCH (09:57)
[2017-09-17] MEDS: GABAPENTIN 300 MG CAPSULE PO SCH ×3 (09:57→21:00)
[2017-09-17] MEDS: CLOPIDOGREL BISULFATE 75 MG TAB PO SCH (09:57)
[2017-09-17] MEDS: ENOXAPARIN SODIUM 40 MG/0.4 ML SYRINGE SQ SCH (09:58)
[2017-09-17 10:43] LABS: CREATININE 1.5 mg/dL (0.5-1.5); POTASSIUM 4.8 mmol/L (3.5-5.1)
[2017-09-17] MEDS: MAG HYDROX/AL HYDROX/SIMETH ES 30 ML SUSP UDCUP PO PRN (16:41)
[2017-09-17] MEDS: TRAMADOL HCL 50 MG TABLET PO PRN (16:52)
[2017-09-17 17:17] LABS: THYROID STIMULATING HORMONE 7.83 uIU/mL (0.36-3.74); URIC ACID 6.7 mg/dL (2.6-7.2)
[2017-09-17 19:18] LABS: CREATININE 1.4 mg/dL (0.5-1.5); POTASSIUM 4.5 mmol/L (3.5-5.1)
[2017-09-17] MEDS ORDERED: SODIUM CHLORIDE 0.9% 1000ML 1,000 ML IV ONE (22:13)
[2017-09-17] MEDS ORDERED: SODIUM CHLORIDE 0.9% 1000ML 1,000 ML IV SCH (22:15)
[2017-09-18] MEDS: ONDANSETRON HCL MDV 20ML 2 MG/ML VIAL IVP PRN ×2 (02:40→12:10)
[2017-09-18 04:04] VITALS: BP 127/64
[2017-09-18 04:36] LABS: HEMATOCRIT 24.2 % (42-54); MEAN CORPUSCULAR HEMOGLOBIN 27.8 pg (27.0-33.0); MEAN CORPUSCULAR HGB CONC 33.3 g/dL (32.0-36.0); MEAN CORPUSCULAR VOLUME 83.3 fL (79-99); NUCLEATED RED BLOOD CELLS 0.5 % (0.0-0.19); PLATELET COUNT (AUTO) 256 K/uL (130-400); RED BLOOD CELL COUNT(AUTO) 2.91 MIL/uL (4.50-6.20); RED CELL DISTRIBUTION WIDTH 17.8 % (11.0-15.5); WHITE BLOOD COUNT (AUTO) 10.4 K/uL (4.8-10.8)
[2017-09-18 04:46] LABS: CREATININE 1.4 mg/dL (0.5-1.5); MAGNESIUM 2.4 mg/dL (1.80-2.40); POTASSIUM 4.6 mmol/L (3.5-5.1)
[2017-09-18 05:11] LABS: B-TYPE NATRIURETIC PEPTIDE 843 pg/mL (0-100)
[2017-09-18] MEDS: LEVOTHYROXINE 50 MCG TABLET PO SCH (06:03)
[2017-09-18] MEDS: IPRATROPIUM/ALBUTEROL SULFATE 3 ML SOLUTION IH SCH ×5 (06:19→23:59)
[2017-09-18] MEDS: TRAMADOL HCL 50 MG TABLET PO PRN ×2 (06:51→15:19)
[2017-09-18 08:01] VITALS: BP 99/66
[2017-09-18] MEDS: GABAPENTIN 300 MG CAPSULE PO SCH ×3 (08:37→21:00)
[2017-09-18] MEDS: ASPIRIN 81MG TAB.CHEW PO SCH (08:37)
[2017-09-18] MEDS: FLUCONAZOLE 100 MG TAB PO SCH (08:37)
[2017-09-18] MEDS: LISINOPRIL 2.5 MG TABLET PO SCH (08:37)
[2017-09-18] MEDS: CLOPIDOGREL BISULFATE 75 MG TAB PO SCH (08:37)
[2017-09-18] MEDS: ENOXAPARIN SODIUM 40 MG/0.4 ML SYRINGE SQ SCH (08:38)
[2017-09-18] MEDS: PANTOPRAZOLE SODIUM 40 MG TABLET.DR PO SCH (08:38)
[2017-09-18] MEDS: VITAMIN E 400 UNIT CAPSULE PO SCH (08:38)
[2017-09-18 09:59] LABS: CHLORIDE,URINE RANDOM 26 mmol/L (110-250); POTASSIUM,URINE RANDOM 26 mmol/L (25-125); SODIUM,URINE RANDOM < 15 mmol/l (40-220)
[2017-09-18 11:18] VITALS: BP 130/71
[2017-09-18 16:30] VITALS: BP 138/69
[2017-09-18] MEDS: SODIUM CHLORIDE 1,000 MG TAB PO SCH ×2 (17:08→22:03)
[2017-09-18 19:58] VITALS: BP 101/37
[2017-09-18] MEDS ORDERED: SODIUM CHLORIDE 1,000 MG TAB PO SCH (21:00)
[2017-09-18 23:47] VITALS: BP 124/64
[2017-09-19 03:36] VITALS: BP 120/57
[2017-09-19 05:01] LABS: HEMATOCRIT 23.6 % (42-54); MEAN CORPUSCULAR HEMOGLOBIN 28.3 pg (27.0-33.0); MEAN CORPUSCULAR HGB CONC 34.4 g/dL (32.0-36.0); MEAN CORPUSCULAR VOLUME 82.2 fL (79-99); NUCLEATED RED BLOOD CELLS 0.3 % (0.0-0.19); PLATELET COUNT (AUTO) 282 K/uL (130-400); RED BLOOD CELL COUNT(AUTO) 2.87 MIL/uL (4.50-6.20); RED CELL DISTRIBUTION WIDTH 17.7 % (11.0-15.5); WHITE BLOOD COUNT (AUTO) 10.8 K/uL (4.8-10.8)
[2017-09-19 05:13] LABS: CREATININE 1.3 mg/dL (0.5-1.5); POTASSIUM 4.5 mmol/L (3.5-5.1)
[2017-09-19 05:26] LABS: % IRON SATURATION 6.1 % (30-44)
[2017-09-19] MEDS: IPRATROPIUM/ALBUTEROL SULFATE 3 ML SOLUTION IH SCH ×3 (06:12→18:28)
[2017-09-19] MEDS: LEVOTHYROXINE 50 MCG TABLET PO SCH (06:22)
[2017-09-19 07:00] VITALS: BP 108/41
[2017-09-19] MEDS: CLOPIDOGREL BISULFATE 75 MG TAB PO SCH (09:54)
[2017-09-19] MEDS: VITAMIN E 400 UNIT CAPSULE PO SCH (09:54)
[2017-09-19] MEDS: FLUCONAZOLE 100 MG TAB PO SCH (09:54)
[2017-09-19] MEDS: PANTOPRAZOLE SODIUM 40 MG TABLET.DR PO SCH (09:54)
[2017-09-19] MEDS: GABAPENTIN 300 MG CAPSULE PO SCH ×4 (09:54→21:01)
[2017-09-19] MEDS: ASPIRIN 81MG TAB.CHEW PO SCH (09:54)
[2017-09-19] MEDS: LISINOPRIL 2.5 MG TABLET PO SCH (09:54)
[2017-09-19] MEDS: SODIUM CHLORIDE 1,000 MG TAB PO SCH ×2 (09:54→21:01)
[2017-09-19] MEDS: ENOXAPARIN SODIUM 40 MG/0.4 ML SYRINGE SQ SCH (09:55)
[2017-09-19 11:00] VITALS: BP 121/68
[2017-09-19 16:00] VITALS: BP 116/62
[2017-09-19] MEDS: INSULIN HUMULIN R 100 UNIT/ML 3ML SQ SCH ×2 (16:16→21:00)
[2017-09-19 19:47] VITALS: BP 126/53
[2017-09-19 23:29] VITALS: BP 106/71
[2017-09-20] MEDS: IPRATROPIUM/ALBUTEROL SULFATE 3 ML SOLUTION IH SCH ×5 (00:08→23:13)
[2017-09-20 03:52] VITALS: BP 150/59
[2017-09-20 05:04] LABS: HEMATOCRIT 23.1 % (42-54); MEAN CORPUSCULAR HEMOGLOBIN 27.4 pg (27.0-33.0); MEAN CORPUSCULAR HGB CONC 33.6 g/dL (32.0-36.0); MEAN CORPUSCULAR VOLUME 81.7 fL (79-99); NUCLEATED RED BLOOD CELLS 0.6 % (0.0-0.19); PLATELET COUNT (AUTO) 304 K/uL (130-400); RED BLOOD CELL COUNT(AUTO) 2.83 MIL/uL (4.50-6.20); RED CELL DISTRIBUTION WIDTH 17.8 % (11.0-15.5); WHITE BLOOD COUNT (AUTO) 9.2 K/uL (4.8-10.8)
[2017-09-20 05:12] LABS: CREATININE 1.4 mg/dL (0.5-1.5); POTASSIUM 4.7 mmol/L (3.5-5.1)
[2017-09-20] MEDS: INSULIN HUMULIN R 100 UNIT/ML 3ML SQ SCH ×4 (06:10→21:40)
[2017-09-20] MEDS: LEVOTHYROXINE 50 MCG TABLET PO SCH (06:10)
[2017-09-20 07:00] VITALS: BP 107/58
[2017-09-20] MEDS: FLUCONAZOLE 100 MG TAB PO SCH (07:59)
[2017-09-20] MEDS: ASPIRIN 81MG TAB.CHEW PO SCH (07:59)
[2017-09-20] MEDS: CLOPIDOGREL BISULFATE 75 MG TAB PO SCH (07:59)
[2017-09-20] MEDS: PANTOPRAZOLE SODIUM 40 MG TABLET.DR PO SCH (07:59)
[2017-09-20] MEDS: SODIUM CHLORIDE 1,000 MG TAB PO SCH ×2 (08:00→21:38)
[2017-09-20] MEDS: LISINOPRIL 2.5 MG TABLET PO SCH (08:00)
[2017-09-20] MEDS: ENOXAPARIN SODIUM 40 MG/0.4 ML SYRINGE SQ SCH (08:01)
[2017-09-20] MEDS: VITAMIN E 400 UNIT CAPSULE PO SCH (08:02)
[2017-09-20] MEDS: GABAPENTIN 300 MG CAPSULE PO SCH ×3 (08:02→21:38)
[2017-09-20 11:00] VITALS: BP 103/73
[2017-09-20] MEDS ORDERED: COMPOUND IV MISC 1 EACH IVSOLN MISC PRN (14:30)
[2017-09-20 16:00] VITALS: BP 114/49
[2017-09-20] MEDS: TRAMADOL HCL 50 MG TABLET PO PRN (16:42)
[2017-09-20 19:52] VITALS: BP 99/55
[2017-09-20 23:24] VITALS: BP 119/56
[2017-09-21] MEDS: TRAMADOL HCL 50 MG TABLET PO PRN ×2 (00:21→10:39)
[2017-09-21 03:29] VITALS: BP 121/45
[2017-09-21 04:00] LABS: HEMATOCRIT 22.7 % (42-54); MEAN CORPUSCULAR HEMOGLOBIN 27.9 pg (27.0-33.0); MEAN CORPUSCULAR HGB CONC 34.4 g/dL (32.0-36.0); MEAN CORPUSCULAR VOLUME 81.2 fL (79-99); NUCLEATED RED BLOOD CELLS 0.6 % (0.0-0.19); PLATELET COUNT (AUTO) 284 K/uL (130-400); RED BLOOD CELL COUNT(AUTO) 2.79 MIL/uL (4.50-6.20); RED CELL DISTRIBUTION WIDTH 18.3 % (11.0-15.5)
[2017-09-21 04:15] LABS: CREATININE 1.2 mg/dL (0.5-1.5); POTASSIUM 4.9 mmol/L (3.5-5.1)
[2017-09-21] MEDS: IPRATROPIUM/ALBUTEROL SULFATE 3 ML SOLUTION IH SCH ×4 (05:13→23:24)
[2017-09-21] MEDS: INSULIN HUMULIN R 100 UNIT/ML 3ML SQ SCH ×4 (06:47→21:00)
[2017-09-21] MEDS: LEVOTHYROXINE 50 MCG TABLET PO SCH (06:47)
[2017-09-21 07:39] VITALS: BP 119/72
[2017-09-21] MEDS: ENOXAPARIN SODIUM 40 MG/0.4 ML SYRINGE SQ SCH (10:38)
[2017-09-21] MEDS: ASPIRIN 81MG TAB.CHEW PO SCH (10:39)
[2017-09-21] MEDS: LISINOPRIL 2.5 MG TABLET PO SCH (10:39)
[2017-09-21] MEDS: CLOPIDOGREL BISULFATE 75 MG TAB PO SCH (10:39)
[2017-09-21] MEDS: SODIUM CHLORIDE 1,000 MG TAB PO SCH ×3 (10:39→21:56)
[2017-09-21] MEDS: FLUCONAZOLE 100 MG TAB PO SCH (10:39)
[2017-09-21] MEDS: IRON SUCROSE COMPLEX 100 MG in SODIUM CHLORIDE 0.9% 50 ML IV SCH (10:40)
[2017-09-21] MEDS: GABAPENTIN 300 MG CAPSULE PO SCH ×3 (10:56→21:00)
[2017-09-21] MEDS: VITAMIN E 400 UNIT CAPSULE PO SCH (10:57)
[2017-09-21 11:23] VITALS: BP 112/58
[2017-09-21] MEDS: HYDROCODONE/ACETAMINOPHEN 10/325 MG TAB PO PRN (16:00)
[2017-09-21 16:15] VITALS: BP 107/67
[2017-09-21 19:41] VITALS: BP 119/63
[2017-09-21] MEDS: FAMOTIDINE 20MG TAB 20 MG TAB PO SCH (21:56)
[2017-09-21 23:55] VITALS: BP 115/58
[2017-09-22 03:57] VITALS: BP 121/78
[2017-09-22 03:58] LABS: HEMATOCRIT 23.3 % (42-54); MEAN CORPUSCULAR HEMOGLOBIN 27.9 pg (27.0-33.0); MEAN CORPUSCULAR HGB CONC 34.2 g/dL (32.0-36.0); MEAN CORPUSCULAR VOLUME 81.8 fL (79-99); NUCLEATED RED BLOOD CELLS 1.1 % (0.0-0.19); PLATELET COUNT (AUTO) 297 K/uL (130-400); RED BLOOD CELL COUNT(AUTO) 2.85 MIL/uL (4.50-6.20); RED CELL DISTRIBUTION WIDTH 17.9 % (11.0-15.5); WHITE BLOOD COUNT (AUTO) 9.6 K/uL (4.8-10.8)
[2017-09-22 04:03] LABS: CREATININE 1.1 mg/dL (0.5-1.5); MAGNESIUM 2.3 mg/dL (1.80-2.40); POTASSIUM 4.5 mmol/L (3.5-5.1)
[2017-09-22] MEDS: IPRATROPIUM/ALBUTEROL SULFATE 3 ML SOLUTION IH SCH ×4 (06:39→23:21)
[2017-09-22] MEDS: INSULIN HUMULIN R 100 UNIT/ML 3ML SQ SCH ×4 (06:52→21:00)
[2017-09-22] MEDS: LEVOTHYROXINE 50 MCG TABLET PO SCH (06:56)
[2017-09-22 07:29] VITALS: BP 138/64
[2017-09-22] MEDS: LISINOPRIL 2.5 MG TABLET PO SCH (09:29)
[2017-09-22] MEDS: SODIUM CHLORIDE 1,000 MG TAB PO SCH ×3 (09:29→23:04)
[2017-09-22] MEDS: ASPIRIN 81MG TAB.CHEW PO SCH (09:29)
[2017-09-22] MEDS: FAMOTIDINE 20MG TAB 20 MG TAB PO SCH (09:29)
[2017-09-22] MEDS: HYDROCODONE/ACETAMINOPHEN 10/325 MG TAB PO PRN ×2 (09:29→17:55)
[2017-09-22] MEDS: GABAPENTIN 300 MG CAPSULE PO SCH ×3 (09:29→21:00)
[2017-09-22] MEDS: FLUCONAZOLE 100 MG TAB PO SCH (09:30)
[2017-09-22] MEDS: CLOPIDOGREL BISULFATE 75 MG TAB PO SCH (09:30)
[2017-09-22] MEDS: VITAMIN E 400 UNIT CAPSULE PO SCH (09:30)
[2017-09-22] MEDS: IRON SUCROSE COMPLEX 100 MG in SODIUM CHLORIDE 0.9% 50 ML IV SCH (09:30)
[2017-09-22] MEDS: ENOXAPARIN SODIUM 40 MG/0.4 ML SYRINGE SQ SCH (09:31)
[2017-09-22] MEDS: ONDANSETRON HCL MDV 20ML 2 MG/ML VIAL IVP PRN ×2 (10:20→21:06)
[2017-09-22 11:27] VITALS: BP 99/52
[2017-09-22] MEDS: MAG HYDROX/AL HYDROX/SIMETH ES 30 ML SUSP UDCUP PO PRN ×2 (12:01→17:55)
[2017-09-22 16:01] VITALS: BP 109/57
[2017-09-22 19:36] VITALS: BP 145/79
[2017-09-22 19:49] LABS: CREATININE 1.1 mg/dL (0.5-1.5); POTASSIUM 4.5 mmol/L (3.5-5.1)
[2017-09-23 00:26] VITALS: BP 145/63
[2017-09-23] MEDS: HYDROCODONE/ACETAMINOPHEN 10/325 MG TAB PO PRN (02:33)
[2017-09-23 03:49] VITALS: BP 104/76
[2017-09-23 04:26] LABS: BASOPHILS % (AUTO) 0.4 % (0.0-5.0); EOSINOPHILS % (AUTO) 1.5 % (0.0-8.0); HEMATOCRIT 24.8 % (42-54); LYMPHOCYTES % (AUTO) 5.9 % (21.0-51.0); MEAN CORPUSCULAR HEMOGLOBIN 27.8 pg (27.0-33.0); MEAN CORPUSCULAR HGB CONC 34.2 g/dL (32.0-36.0); MEAN CORPUSCULAR VOLUME 81.5 fL (79-99); MONOCYTES % (AUTO) 8.8 % (3.0-13.0); NEUTROPHILS % (AUTO) 83.4 % (40.0-77.0); NUCLEATED RED BLOOD CELLS 0.6 % (0.0-0.19); PLATELET COUNT (AUTO) 330 K/uL (130-400); RED BLOOD CELL COUNT(AUTO) 3.04 MIL/uL (4.50-6.20); RED CELL DISTRIBUTION WIDTH 18.2 % (11.0-15.5); WHITE BLOOD COUNT (AUTO) 12.7 K/uL (4.8-10.8)
[2017-09-23 04:42] LABS: ALBUMIN 2.4 g/dL (3.5-5.0); BILIRUBIN,TOTAL 0.7 mg/dL (0.2-1.0); CREATININE 1.1 mg/dL (0.5-1.5); MAGNESIUM 2.3 mg/dL (1.80-2.40); PHOSPHORUS 3.2 mg/dL (2.5-4.9); POTASSIUM 4.9 mmol/L (3.5-5.1); TOTAL PROTEIN, SERUM 6.3 g/dL (6.0-8.3)
[2017-09-23 04:56] LABS: B-TYPE NATRIURETIC PEPTIDE 1440 pg/mL (0-100)
[2017-09-23] MEDS: INSULIN HUMULIN R 100 UNIT/ML 3ML SQ SCH ×4 (06:06→21:00)
[2017-09-23] MEDS: LEVOTHYROXINE 50 MCG TABLET PO SCH (06:12)
[2017-09-23] MEDS: IPRATROPIUM/ALBUTEROL SULFATE 3 ML SOLUTION IH SCH ×4 (06:43→23:54)
[2017-09-23 07:41] VITALS: BP 114/55
[2017-09-23] MEDS: GABAPENTIN 300 MG CAPSULE PO SCH (09:00)
[2017-09-23] MEDS: LISINOPRIL 2.5 MG TABLET PO SCH (10:21)
[2017-09-23] MEDS: CLOPIDOGREL BISULFATE 75 MG TAB PO SCH (10:22)
[2017-09-23] MEDS: ASPIRIN 81MG TAB.CHEW PO SCH (10:22)
[2017-09-23] MEDS: FLUCONAZOLE 100 MG TAB PO SCH (10:22)
[2017-09-23] MEDS: FAMOTIDINE 20MG TAB 20 MG TAB PO SCH (10:22)
[2017-09-23] MEDS: ENOXAPARIN SODIUM 40 MG/0.4 ML SYRINGE SQ SCH (10:23)
[2017-09-23] MEDS: ONDANSETRON HCL MDV 20ML 2 MG/ML VIAL IVP PRN (10:29)
[2017-09-23] MEDS: SODIUM CHLORIDE 1,000 MG TAB PO SCH ×3 (10:29→21:51)
[2017-09-23] MEDS: IRON SUCROSE COMPLEX 100 MG in SODIUM CHLORIDE 0.9% 50 ML IV SCH (10:29)
[2017-09-23] MEDS: VITAMIN E 400 UNIT CAPSULE PO SCH (10:29)
[2017-09-23 11:38] VITALS: BP 117/57
[2017-09-23] MEDS ORDERED: FUROSEMIDE 10 MG/ML 4ML VIAL IV SCH (13:23)
[2017-09-23 16:34] VITALS: BP 106/52
[2017-09-23 19:56] VITALS: BP 126/62
[2017-09-23 20:11] LABS: CREATININE 1.1 mg/dL (0.5-1.5); POTASSIUM 4.6 mmol/L (3.5-5.1)
[2017-09-24] VITALS: BP 110/53
[2017-09-24 04:13] LABS: HEMATOCRIT 25.3 % (42-54); MEAN CORPUSCULAR HEMOGLOBIN 27.2 pg (27.0-33.0); MEAN CORPUSCULAR HGB CONC 33.5 g/dL (32.0-36.0); MEAN CORPUSCULAR VOLUME 81.1 fL (79-99); NUCLEATED RED BLOOD CELLS 0.3 % (0.0-0.19); PLATELET COUNT (AUTO) 304 K/uL (130-400); RED BLOOD CELL COUNT(AUTO) 3.13 MIL/uL (4.50-6.20); RED CELL DISTRIBUTION WIDTH 18.3 % (11.0-15.5)
[2017-09-24 04:16] VITALS: BP 109/52
[2017-09-24 04:23] LABS: POTASSIUM 4.6 mmol/L (3.5-5.1)
[2017-09-24] MEDS: IPRATROPIUM/ALBUTEROL SULFATE 3 ML SOLUTION IH SCH ×4 (06:08→23:16)
[2017-09-24] MEDS: LACTULOSE 20 GM/30 ML UDCUP PO PRN (06:10)
[2017-09-24] MEDS: LEVOTHYROXINE 50 MCG TABLET PO SCH (06:10)
[2017-09-24] MEDS: INSULIN HUMULIN R 100 UNIT/ML 3ML SQ SCH ×4 (06:36→20:54)
[2017-09-24 07:41] VITALS: BP 92/57
[2017-09-24] MEDS: ONDANSETRON HCL MDV 20ML 2 MG/ML VIAL IVP PRN ×2 (08:31→14:43)
[2017-09-24] MEDS: IRON SUCROSE COMPLEX 100 MG in SODIUM CHLORIDE 0.9% 50 ML IV SCH (08:31)
[2017-09-24] MEDS: ENOXAPARIN SODIUM 40 MG/0.4 ML SYRINGE SQ SCH (08:32)
[2017-09-24] MEDS: SODIUM CHLORIDE 1,000 MG TAB PO SCH ×3 (08:41→20:39)
[2017-09-24] MEDS: FAMOTIDINE 20MG TAB 20 MG TAB PO SCH (08:41)
[2017-09-24] MEDS: LISINOPRIL 2.5 MG TABLET PO SCH (08:41)
[2017-09-24] MEDS: CLOPIDOGREL BISULFATE 75 MG TAB PO SCH (08:41)
[2017-09-24] MEDS: VITAMIN E 400 UNIT CAPSULE PO SCH (08:41)
[2017-09-24] MEDS: ASPIRIN 81MG TAB.CHEW PO SCH (08:41)
[2017-09-24] MEDS: FLUCONAZOLE 100 MG TAB PO SCH (08:41)
[2017-09-24 11:00] VITALS: BP 100/63
[2017-09-24] MEDS: FUROSEMIDE 10 MG/ML 4ML VIAL IV SCH (14:17)
[2017-09-24] MEDS: ZOSYN 3.375GM+NS 50ML 50 ML IV SCH ×2 (14:17→20:39)
[2017-09-24 16:28] VITALS: BP 112/64
[2017-09-24 19:48] VITALS: BP 100/50
[2017-09-24] MEDS: ACETAMINOPHEN 325 MG TAB PO PRN (23:56)
[2017-09-25] VITALS: BP_SYST 131; BP_SYST 151; BP_DIAS 88
[2017-09-25 04:00] VITALS: BP 107/50
[2017-09-25] MEDS: ZOSYN 3.375GM+NS 50ML 50 ML IV SCH ×3 (04:14→21:16)
[2017-09-25 05:03] LABS: HEMATOCRIT 23.6 % (42-54); MEAN CORPUSCULAR HEMOGLOBIN 27.8 pg (27.0-33.0); MEAN CORPUSCULAR HGB CONC 33.8 g/dL (32.0-36.0); MEAN CORPUSCULAR VOLUME 82.2 fL (79-99); NUCLEATED RED BLOOD CELLS 0.1 % (0.0-0.19); PLATELET COUNT (AUTO) 266 K/uL (130-400); RED BLOOD CELL COUNT(AUTO) 2.88 MIL/uL (4.50-6.20); RED CELL DISTRIBUTION WIDTH 18.4 % (11.0-15.5)
[2017-09-25 05:19] LABS: CREATININE 1.1 mg/dL (0.5-1.5); PHOSPHORUS 2.9 mg/dL (2.5-4.9); POTASSIUM 4.1 mmol/L (3.5-5.1)
[2017-09-25] MEDS: LEVOTHYROXINE 50 MCG TABLET PO SCH (06:07)
[2017-09-25] MEDS: INSULIN HUMULIN R 100 UNIT/ML 3ML SQ SCH ×4 (06:09→21:00)
[2017-09-25] MEDS: IPRATROPIUM/ALBUTEROL SULFATE 3 ML SOLUTION IH SCH ×4 (06:59→23:31)
[2017-09-25 07:43] VITALS: BP 123/55
[2017-09-25] MEDS: LISINOPRIL 2.5 MG TABLET PO SCH (09:26)
[2017-09-25] MEDS: VITAMIN E 400 UNIT CAPSULE PO SCH (09:26)
[2017-09-25] MEDS: SODIUM CHLORIDE 1,000 MG TAB PO SCH ×3 (09:27→21:00)
[2017-09-25] MEDS: FLUCONAZOLE 100 MG TAB PO SCH (09:27)
[2017-09-25] MEDS: CLOPIDOGREL BISULFATE 75 MG TAB PO SCH (09:27)
[2017-09-25] MEDS: ASPIRIN 81MG TAB.CHEW PO SCH (09:27)
[2017-09-25] MEDS: FAMOTIDINE 20MG TAB 20 MG TAB PO SCH (09:27)
[2017-09-25] MEDS: IRON SUCROSE COMPLEX 100 MG in SODIUM CHLORIDE 0.9% 50 ML IV SCH (09:28)
[2017-09-25] MEDS: ENOXAPARIN SODIUM 40 MG/0.4 ML SYRINGE SQ SCH (09:29)
[2017-09-25 11:35] VITALS: BP 102/57
[2017-09-25] MEDS: FUROSEMIDE 10 MG/ML 4ML VIAL IV SCH ×2 (12:20→16:03)
[2017-09-25 16:40] VITALS: BP 123/66
[2017-09-25] MEDS: ACETAMINOPHEN 325 MG TAB PO PRN (18:37)
[2017-09-25 19:35] VITALS: BP 109/44
[2017-09-25] MEDS: HYDROCODONE/ACETAMINOPHEN 10/325 MG TAB PO PRN (22:59)
[2017-09-26] VITALS (7 sets, daily range): BP systolic 93–132; BP diastolic 42–70
[2017-09-26] MEDS ORDERED: LORAZEPAM 2 MG/ML 1 ML VIAL IVP PRN (01:15)
[2017-09-26] MEDS: ZOSYN 3.375GM+NS 50ML 50 ML IV SCH ×3 (04:21→20:30)
[2017-09-26 04:58] LABS: HEMATOCRIT 24.9 % (42-54); MEAN CORPUSCULAR HEMOGLOBIN 27.7 pg (27.0-33.0); MEAN CORPUSCULAR HGB CONC 33.2 g/dL (32.0-36.0); MEAN CORPUSCULAR VOLUME 83.4 fL (79-99); NUCLEATED RED BLOOD CELLS 0.1 % (0.0-0.19); PLATELET COUNT (AUTO) 288 K/uL (130-400); RED BLOOD CELL COUNT(AUTO) 2.98 MIL/uL (4.50-6.20); RED CELL DISTRIBUTION WIDTH 18.8 % (11.0-15.5); WHITE BLOOD COUNT (AUTO) 9.4 K/uL (4.8-10.8)
[2017-09-26 05:09] LABS: CREATININE 1.1 mg/dL (0.5-1.5); MAGNESIUM 1.9 mg/dL (1.80-2.40); POTASSIUM 3.7 mmol/L (3.5-5.1)
[2017-09-26] MEDS: MAGNESIUM 2GM PREMIX 50ML 50 ML IV PRN (06:07)
[2017-09-26] MEDS: POTASSIUM CHLORIDE 20MEQ/100ML 100 ML IV PRN (06:07)
[2017-09-26] MEDS: LEVOTHYROXINE 50 MCG TABLET PO SCH (06:08)
[2017-09-26] MEDS: IPRATROPIUM/ALBUTEROL SULFATE 3 ML SOLUTION IH SCH ×4 (06:18→23:46)
[2017-09-26] MEDS: INSULIN HUMULIN R 100 UNIT/ML 3ML SQ SCH ×4 (07:30→20:23)
[2017-09-26] MEDS: IRON SUCROSE COMPLEX 100 MG in SODIUM CHLORIDE 0.9% 50 ML IV SCH (09:44)
[2017-09-26] MEDS: LISINOPRIL 2.5 MG TABLET PO SCH (09:45)
[2017-09-26] MEDS: FLUCONAZOLE 100 MG TAB PO SCH (09:45)
[2017-09-26] MEDS: VITAMIN E 400 UNIT CAPSULE PO SCH (09:45)
[2017-09-26] MEDS: ASPIRIN 81MG TAB.CHEW PO SCH (09:45)
[2017-09-26] MEDS: SODIUM CHLORIDE 1,000 MG TAB PO SCH ×3 (09:45→20:22)
[2017-09-26] MEDS: CLOPIDOGREL BISULFATE 75 MG TAB PO SCH (09:45)
[2017-09-26] MEDS: FAMOTIDINE 20MG TAB 20 MG TAB PO SCH (09:45)
[2017-09-26] MEDS: POTASSIUM CHLORIDE 20 MEQ ERTAB PO PRN (09:46)
[2017-09-26] MEDS: TRAMADOL HCL 50 MG TABLET PO PRN ×2 (09:46→20:23)
[2017-09-26] MEDS: ENOXAPARIN SODIUM 40 MG/0.4 ML SYRINGE SQ SCH (09:47)
[2017-09-26] MEDS: FUROSEMIDE 10 MG/ML 4ML VIAL IV SCH ×2 (13:15→15:30)
[2017-09-26] MEDS: PANTOPRAZOLE SODIUM 40 MG TABLET.DR PO SCH (19:43)
[2017-09-27 03:55] VITALS: BP 134/60
[2017-09-27 03:56] LABS: MEAN CORPUSCULAR HEMOGLOBIN 29.5 pg (27.0-33.0); MEAN CORPUSCULAR HGB CONC 34.5 g/dL (32.0-36.0); MEAN CORPUSCULAR VOLUME 85.7 fL (79-99); NUCLEATED RED BLOOD CELLS 0.3 % (0.0-0.19); PLATELET COUNT (AUTO) 257 K/uL (130-400); RED BLOOD CELL COUNT(AUTO) 2.92 MIL/uL (4.50-6.20); RED CELL DISTRIBUTION WIDTH 19.5 % (11.0-15.5); WHITE BLOOD COUNT (AUTO) 8.7 K/uL (4.8-10.8)
[2017-09-27 04:12] LABS: ALBUMIN 2.5 g/dL (3.5-5.0); BILIRUBIN,TOTAL 0.7 mg/dL (0.2-1.0); CREATININE 1.1 mg/dL (0.5-1.5); MAGNESIUM 2.2 mg/dL (1.80-2.40); PHOSPHORUS 2.6 mg/dL (2.5-4.9); TOTAL PROTEIN, SERUM 6.1 g/dL (6.0-8.3)
[2017-09-27] MEDS: ZOSYN 3.375GM+NS 50ML 50 ML IV SCH ×3 (05:05→20:59)
[2017-09-27] MEDS: LEVOTHYROXINE 50 MCG TABLET PO SCH (06:03)
[2017-09-27] MEDS: INSULIN HUMULIN R 100 UNIT/ML 3ML SQ SCH ×4 (06:03→21:00)
[2017-09-27] MEDS: IPRATROPIUM/ALBUTEROL SULFATE 3 ML SOLUTION IH SCH ×4 (06:07→23:57)
[2017-09-27 07:42] VITALS: BP 113/65
[2017-09-27] MEDS: VITAMIN E 400 UNIT CAPSULE PO SCH (09:24)
[2017-09-27] MEDS: SODIUM CHLORIDE 1,000 MG TAB PO SCH ×2 (09:24→20:59)
[2017-09-27] MEDS: ASPIRIN 81MG TAB.CHEW PO SCH (09:24)
[2017-09-27] MEDS: FLUCONAZOLE 100 MG TAB PO SCH (09:24)
[2017-09-27] MEDS: CLOPIDOGREL BISULFATE 75 MG TAB PO SCH (09:24)
[2017-09-27] MEDS: FAMOTIDINE 20MG TAB 20 MG TAB PO SCH (09:24)
[2017-09-27] MEDS: LISINOPRIL 2.5 MG TABLET PO SCH (09:25)
[2017-09-27] MEDS: IRON SUCROSE COMPLEX 100 MG in SODIUM CHLORIDE 0.9% 50 ML IV SCH (09:27)
[2017-09-27] MEDS: ENOXAPARIN SODIUM 40 MG/0.4 ML SYRINGE SQ SCH (09:28)
[2017-09-27 11:52] VITALS: BP 134/67
[2017-09-27 16:00] VITALS: BP 106/70
[2017-09-27 19:25] VITALS: BP 119/86
[2017-09-27 23:40] VITALS: BP 128/67
[2017-09-28] MEDS: TRAMADOL HCL 50 MG TABLET PO PRN ×2 (01:07→10:24)
[2017-09-28 03:56] VITALS: BP 136/69
[2017-09-28 04:07] LABS: HEMATOCRIT 26.9 % (42-54); MEAN CORPUSCULAR HEMOGLOBIN 27.8 pg (27.0-33.0); MEAN CORPUSCULAR HGB CONC 31.6 g/dL (32.0-36.0); MEAN CORPUSCULAR VOLUME 87.9 fL (79-99); NUCLEATED RED BLOOD CELLS 0.4 % (0.0-0.19); PLATELET COUNT (AUTO) 255 K/uL (130-400); RED BLOOD CELL COUNT(AUTO) 3.06 MIL/uL (4.50-6.20); RED CELL DISTRIBUTION WIDTH 21.1 % (11.0-15.5); WHITE BLOOD COUNT (AUTO) 8.5 K/uL (4.8-10.8)
[2017-09-28 04:16] LABS: MAGNESIUM 2.1 mg/dL (1.80-2.40); POTASSIUM 3.8 mmol/L (3.5-5.1)
[2017-09-28] MEDS: ZOSYN 3.375GM+NS 50ML 50 ML IV SCH ×2 (04:28→12:35)
[2017-09-28] MEDS: INSULIN HUMULIN R 100 UNIT/ML 3ML SQ SCH ×3 (05:29→16:26)
[2017-09-28] MEDS: LEVOTHYROXINE 50 MCG TABLET PO SCH (05:39)
[2017-09-28] MEDS: IPRATROPIUM/ALBUTEROL SULFATE 3 ML SOLUTION IH SCH ×3 (06:07→18:51)
[2017-09-28 07:47] VITALS: BP 126/64
[2017-09-28] MEDS: VITAMIN E 400 UNIT CAPSULE PO SCH (08:05)
[2017-09-28] MEDS: ASPIRIN 81MG TAB.CHEW PO SCH (08:05)
[2017-09-28] MEDS: SODIUM CHLORIDE 1,000 MG TAB PO SCH (08:05)
[2017-09-28] MEDS: CLOPIDOGREL BISULFATE 75 MG TAB PO SCH (08:05)
[2017-09-28] MEDS: ENOXAPARIN SODIUM 40 MG/0.4 ML SYRINGE SQ SCH (08:06)
[2017-09-28] MEDS: FLUCONAZOLE 100 MG TAB PO SCH (08:06)
[2017-09-28] MEDS: FAMOTIDINE 20MG TAB 20 MG TAB PO SCH (08:06)
[2017-09-28] MEDS: LISINOPRIL 2.5 MG TABLET PO SCH (08:06)
[2017-09-28] MEDS: IRON SUCROSE COMPLEX 100 MG in SODIUM CHLORIDE 0.9% 50 ML IV SCH (11:15)
[2017-09-28 11:31] VITALS: BP 138/67
[2017-09-28 16:45] VITALS: BP 128/74
[2017-09-29] MEDS ORDERED: ASCORBIC ACID 500 MG TAB PO SCH (09:00)
[2017-09-29] MEDS ORDERED: ZINC SULFATE 220 CAPSULE PO SCH (09:00)
== END 2017-09-28 19:35 | DRG 853 ==
LOC: EDH 12:21 → EDHIP 16:14 → 3AH 18:46 → 2CH 09-10 13:54 → 2DH 09-12 02:06
PROVIDERS: ADMIT Internal Medicine; ATTEND Internal Medicine
PROC: 047L34Z Dilation of Left Femoral Artery with Drug-eluting Intraluminal Device, Percutaneous Approach (ICD-10-PCS; principal; 2017-09-07)
PROC: B41G1ZZ Fluoroscopy of Left Lower Extremity Arteries using Low Osmolar Contrast (ICD-10-PCS; 2017-09-07)
PROC: 04CQ0ZZ Extirpation of Matter from Left Anterior Tibial Artery, Open Approach (ICD-10-PCS; 2017-09-10)
PROC: 04CL0ZZ Extirpation of Matter from Left Femoral Artery, Open Approach (ICD-10-PCS; 2017-09-10)
PROC: 0Y6N0Z9 Detachment at Left Foot, Partial 1st Ray, Open Approach (ICD-10-PCS; 2017-09-10)
PROC: 0Y6N0ZB Detachment at Left Foot, Partial 2nd Ray, Open Approach (ICD-10-PCS; 2017-09-10)
PROC: 5A09357 Assistance with Respiratory Ventilation, Less than 24 Consecutive Hours, Continuous Positive Airway Pressure (ICD-10-PCS; 2017-09-10)
PROC: 041L0ZN Bypass Left Femoral Artery to Posterior Tibial Artery, Open Approach (ICD-10-PCS; 2017-09-10 07:45)
PROC: 5A09357 Assistance with Respiratory Ventilation, Less than 24 Consecutive Hours, Continuous Positive Airway Pressure (ICD-10-PCS; 2017-09-12)
PROC: 02HV33Z Insertion of Infusion Device into Superior Vena Cava, Percutaneous Approach (ICD-10-PCS; 2017-09-14)
PROC: 5A09357 Assistance with Respiratory Ventilation, Less than 24 Consecutive Hours, Continuous Positive Airway Pressure (ICD-10-PCS; 2017-09-19)
DX: A41.9 Sepsis, unspecified organism (principal); G92 Toxic encephalopathy; J96.00 Acute respiratory failure, unspecified whether with hypoxia or hypercapnia; N19 Unspecified kidney failure; E11.42 Type 2 diabetes mellitus with diabetic polyneuropathy; E11.21 Type 2 diabetes mellitus with diabetic nephropathy; D62 Acute posthemorrhagic anemia; E11.52 Type 2 diabetes mellitus with diabetic peripheral angiopathy with gangrene; M86.9 Osteomyelitis, unspecified; E87.1 Hypo-osmolality and hyponatremia; I42.9 Cardiomyopathy, unspecified; L03.116 Cellulitis of left lower limb; L97.119 Non-pressure chronic ulcer of right thigh with unspecified severity; E11.621 Type 2 diabetes mellitus with foot ulcer; L97.529 Non-pressure chronic ulcer of other part of left foot with unspecified severity; E11.69 Type 2 diabetes mellitus with other specified complication; E03.9 Hypothyroidism, unspecified; E11.65 Type 2 diabetes mellitus with hyperglycemia; I10 Essential (primary) hypertension; E11.622 Type 2 diabetes mellitus with other skin ulcer; E66.01 Morbid (severe) obesity due to excess calories; E78.5 Hyperlipidemia, unspecified; G47.33 Obstructive sleep apnea (adult) (pediatric); G89.4 Chronic pain syndrome; I11.0 Hypertensive heart disease with heart failure; I25.10 Atherosclerotic heart disease of native coronary artery without angina pectoris; E11.51 Type 2 diabetes mellitus with diabetic peripheral angiopathy without gangrene; I50.9 Heart failure, unspecified; I70.0 Atherosclerosis of aorta; K21.9 Gastro-esophageal reflux disease without esophagitis; K43.9 Ventral hernia without obstruction or gangrene; N20.0 Calculus of kidney; B96.20 Unspecified Escherichia coli [E. coli] as the cause of diseases classified elsewhere; Z66 Do not resuscitate; B95.2 Enterococcus as the cause of diseases classified elsewhere; Z74.01 Bed confinement status; Z75.1 Person awaiting admission to adequate facility elsewhere; Z79.02 Long term (current) use of antithrombotics/antiplatelets; Z79.82 Long term (current) use of aspirin; Z79.84 Long term (current) use of oral hypoglycemic drugs; Z95.1 Presence of aortocoronary bypass graft; Z90.49 Acquired absence of other specified parts of digestive tract; Z89.611 Acquired absence of right leg above knee; Z89.511 Acquired absence of right leg below knee; Z89.429 Acquired absence of other toe(s), unspecified side; Z89.419 Acquired absence of unspecified great toe; Z68.36 Body mass index [BMI] 36.0-36.9, adult; Z88.8 Allergy status to other drugs, medicaments and biological substances; Z83.3 Family history of diabetes mellitus
CPT/HCPCS: 36415; 36600; 37226; 71045; 71250; 73630; 73718; 74176; 75710; 80048; 80051; 80053; 80202; 82533; 82728; 82803; 82948; 83540; 83550; 83605; 83735; 83880; 83930; 83935; 84100; 84132; 84295; 84300; 84439; 84443; 84550; 85014; 85018; 85025; 85027; 85347; 85610; 85730; 86850; 86900; 86901; 86922; 87040; 87070; 87076; 87077; 87106; 87186; 88305; 88311; 93005; 93306; 93926; 94640; 94660; 94664; 97039; 99156; 99157; A4344; C1760; C1769; C1893; C1894; J0610; J0697; J1200; J1644; J1650; J1756; J1815; J1940; J1956; J2001; J2060; J2250; J2270; J2405; J2543; J2550; J2704; J2710; J3010; J3370; J3475; J3480; J3490; J7030; J7040; J7070; Q9967